=== PATIENT | female | born 1990 ===

== ENCOUNTER 2022-05-01 07:50 | Inpatient (IN) ==
[2022-05-01] MEDS ORDERED: Ondansetron 4 MG/2 ML VIAL IVP PRN (08:01)
[2022-05-01] MEDS ORDERED: Metoclopramide 10 MG/2 ML VIAL IVP PRN (08:01)
[2022-05-01] MEDS ORDERED: Naloxone 0.4 MG/ML INJ IVP PRN (08:01)
[2022-05-01] MEDS ORDERED: Famotidine 20 MG/2 ML VIAL IVP PRN (08:01)
[2022-05-01] MEDS ORDERED: Penicillin G Potassium 5,000,000 UNIT in 0.9 % Sodium Chloride Mini Bag 100 ML IVPB ONE (08:38)
[2022-05-01] MEDS ORDERED: Oxytocin 30 UNIT/503 ML BAG IVC SCH (08:45)
[2022-05-01 09:29] LABS: Basophils % 0.1 %; Eosinophils % 0.4 %; Hemoglobin 11.2 g/dL (11.5-15.4); Immature Granulocytes % 0.7 % (0-4); Lymphocytes # 1.3 K/mcL (0.6-4.6); Lymphocytes % 15.8 %; Mean Corpuscular Hemoglobin 27.7 pg (28.0-33.3); Mean Corpuscular Volume 86.4 fL (83.0-100.0); Mean Platelet Volume 10.2 fL (9.4-12.4); Monocytes # 0.4 K/mcL (0.0-1.3); Neutrophils # 6.3 K/mcL (1.6-8.9); Platelet Count 174 K/mcL (140-400); Red Blood Count 4.05 M/mcL (3.82-4.97); Red Cell Distribution Width 15.9 % (11.5-14.5); White Blood Count 8.1 K/mcL (4.3-11.1)
[2022-05-01] MEDS: Ringers Solution, Lactated 1,000 ML IVC SCH ×2 (09:48→14:53)
[2022-05-01 10:22] LABS: Amphetamine Screen,Urine Negative ng/mL (Cutoff=1000); Barbiturate Screen,Urine Negative ng/mL (Cutoff=200); Benzodiazepines Screen,Urine Negative ng/mL (Cutoff=200); Cannabinoid Screen,Urine Negative ng/mL (Cutoff = 50); Cocaine Screen,Urine Negative ng/mL (Cutoff= 300); Opiate Screen,Urine Negative ng/mL (Cutoff=300); Phencyclidine Screen,Urine Negative ng/mL (Cutoff=25)
[2022-05-01] MEDS: Penicillin G Potassium 2,500,000 UNIT/105 ML MLS IVPB SCH ×3 (13:58→22:30)
[2022-05-01] MEDS ORDERED: Ropivacaine/PF 0.2% 20 ML VIAL EP ONE (13:58)
[2022-05-01] MEDS ORDERED: *HR* FentaNYL (PF) 100 MCG/2 ML VIAL EP ONE (13:58)
[2022-05-01] MEDS ORDERED: EPHEDrine 50 MG/ML VIAL IVP PRN (13:58)
[2022-05-01] MEDS ORDERED: Epidural Premix (fent/bupiv) 110 ML EP SCH (14:00)
[2022-05-01] MEDS ORDERED: Ropivacaine/PF 0.2% 20 ML VIAL ONE (14:08)
[2022-05-01] MEDS ORDERED: *HR* FentaNYL (PF) 100 MCG/2 ML VIAL ONE ×2 (14:08→22:19)
[2022-05-01] MEDS ORDERED: Ibuprofen 600 MG TABLET PO ONE (23:10)
[2022-05-02] MEDS ORDERED: Oxytocin 30 UNIT/503 ML BAG IVC SCH (02:26)
[2022-05-02] MEDS ORDERED: Lanolin 7 G OINT...G. TP PRN (02:26)
[2022-05-02] MEDS ORDERED: Benzocaine/Menthol 56 GM AEROSOL SPRAY TP PRN (02:26)
[2022-05-02] MEDS ORDERED: Ondansetron ODT 4 MG TAB.RAPDIS SL PRN (02:26)
[2022-05-02] MEDS ORDERED: *HR* OxyCODONE Immed Rel 5 MG TABLET PO PRN (02:26)
[2022-05-02] MEDS: Acetaminophen 325 MG TABLET PO SCH ×3 (03:07→16:46)
[2022-05-02] MEDS: Ibuprofen 600 MG TABLET PO SCH ×3 (03:08→14:07)
[2022-05-02 07:35] VITALS: BP 105/64; PULSE 61; TEMP 97.8; O2SAT 99
[2022-05-02] MEDS ORDERED: Prenatal Vit/FA 1 EACH TABLET PO SCH (09:00)
== END 2022-05-02 23:45 | disposition home or self-care (01) | DRG 807 ==
LOC: 1NENULAB 07:50 → 1NENUOBS 05-02 01:43
PROVIDERS: ADMIT Advanced Practice Midwife; ATTEND Advanced Practice Midwife